=== PATIENT | male | born 1995 | race Caucasian/White ===

== ENCOUNTER 2017-06-08 11:20 | Emergency (ER) | payer BC ==
[2017-06-08 14:00] VITALS: BP 119/55
--- NOTE | 2017-06-08 14:25 | RAD ---
Indication: Left humerus injury. 2 views of left upper arm demonstrates no fracture. No other bone or joint abnormality is noted. IMPRESSION: No fracture of the left humerus is noted.
--- NOTE | 2017-06-09 08:15 | ED ---
Upper Extremity Pain - HPI Summary HPI Summary: Patient presents to the ED with CC of left posterior humeral pain after a tree fell onto the extremity. There is swelling and ecchymosis, but he is able to move about the joint. Denies numbness or tingling. Denies other symptoms. He has not taken anything for pain. Pain is worse with movement and better with rest. Denies previous trauma to the arm. - History of Current Complaint Chief Complaint: EDExtremityUpper Stated Complaint: LEFT ARM PAIN Time Seen by Provider: 06/08/17 11:48 Hx Obtained From: Patient Mechanism Of Injury: Blunt Trauma Onset/Duration: Started Hours Ago Timing: Constant Severity Initially: Moderate Severity Currently: Moderate Pain Location: Arm Character: Aching Aggravating Factor(s): Movement Alleviating Factor(s): Rest, Ice Associated Signs & Symptoms: Positive: Swelling, Bruising Related History: Occupational Injury, Dominant Hand Right - Risk Factors Non-Orthopedic Risk Factor: Negative DVT Risk Factors: Negative Septic Arthritis Risk Factor: Negative Compartment Syndrome Risk Factors: Pain - Allergies/Home Medications Allergies/Adverse Reactions: Allergies Allergy/AdvReac Type Severity Reaction Status Date / Time No Known Allergies Allergy Unverified 06/05/15 22:45 PMH/Surg Hx/FS Hx/Imm Hx Previously Healthy: Yes - Immunization History Hx Pertussis Vaccination: No Immunizations Up to Date: Unable to Obtain/Confirm Infectious Disease History: No Infectious Disease History: Denies: Traveled Outside the [place] in Last 30 Days - Social History Occupation: Employed Full-time Lives: With Family Alcohol Use: Rare Hx Substance Use: No Substance Use Type: Reports: None Hx Tobacco Use: No Smoking Status (MU): Never Smoked Tobacco Review of Systems Constitutional: Negative Negative: Fever, Chills, Fatigue Eyes: Negative Cardiovascular: Negative Respiratory: Negative Genitourinary: Negative Positive: no symptoms reported, see HPI Positive: Arthralgia - left posterior humeral pain Skin: Negative Neurological: Negative Psychological: Normal All Other Systems Reviewed And Are Negative: Yes Physical Exam Triage Information Reviewed: Yes Vital Signs On Initial Exam: Initial Vitals Temp Pulse Resp BP Pulse Ox 97 F 69 17 128/67 99 06/08/17 11:39 06/08/17 11:39 06/08/17 11:39 06/08/17 11:39 06/08/17 11:39 Vital Signs Reviewed: Yes Appearance: Positive: Well-Appearing, Well-Nourished Skin: Positive: Skin Color Reflects Adequate Perfusion Head/Face: Positive: Normal Head/Face Inspection Eyes: Positive: EOMI, Conjunctiva Clear Neck: Positive: Supple, No Lymphadenopathy Respiratory/Lung Sounds: Positive: Clear to Auscultation, Breath Sounds Present Cardiovascular: Positive: Pulses are Symmetrical in both Upper and Lower Extremities Musculoskeletal: Positive: Pain @ - left posterior upper arm pain with ecchymosis and swelling Neurological: Positive: Speech Normal Psychiatric: Positive: Normal Diagnostics - Vital Signs Vital Signs Temp Pulse Resp BP Pulse Ox 06/08/17 13:59 98.5 F 66 18 119/55 95 06/08/17 11:39 97 F 69 17 128/67 99 - Laboratory Lab Statement: Any lab studies that have been ordered have been reviewed, and results considered in the medical decision making process. Course/Dx - Course Course Of Treatment: left posterior upper arm pain with ecchymosis and swelling after the extremity was hit by a tree branch. Denies other symptoms. Humeral xray shows no fracture. Patient is OK for discharge and refuses medication and sling offered. - Diagnoses Differential Diagnosis/HQI/PQRI: Positive: Contusion Provider Diagnoses: Contusion, arm, upper Discharge - Discharge Plan Condition: Stable Disposition: HOME Patient Education Materials: Hematoma (ED) Referrals: Jorgito Herbert, COIN MACHINE SUPERVISOR [Primary Care Provider] - Additional Instructions: Ice Elevation Ibuprofen 600mg three times daily Continue to move at the elbow joint to allow for some circulation. You may begin to use heat and ice intermittently tomorrow. Images - Images Full Body (No Head): 1 - left posterior upper arm pain with ecchymosis and swelling
== END 2017-06-08 13:59 | disposition home or self-care (01) ==
LOC: ED 11:20
DX: S40.022A Contusion of left upper arm, initial encounter (principal); W20.8XXA Other cause of strike by thrown, projected or falling object, initial encounter; Y93.9 Activity, unspecified; Y92.9 Unspecified place or not applicable; Y99.9 Unspecified external cause status
CPT/HCPCS: 99281

== ENCOUNTER 2017-06-15 15:42 | Emergency (ER) | payer BC ==
[2017-06-15 15:51] VITALS: BP 139/60
--- NOTE | 2017-07-09 08:47 | UC ---
FLU HPI - HPI Summary HPI Summary: Patient presents to the with cough, congestion and fever of 99.5 x 2 days. He states his family has been sick with the flu and he was exposed. Denies flu vaccine this year. He has been otherwise healthy. Denies abdominal pain, N.V.C.D. Denies LEO or other complaints. He has never had the flu. Denies other recent illness. Cough is non-productive and rates a 5/10. - History of Current Complaint Chief Complaint: UCRespiratory Stated Complaint: FEVER Time Seen by Provider: 06/15/17 16:05 Hx Obtained From: Patient Onset/Duration: Sudden Onset Severity Currently: Mild Severity Initially: Mild Pain Intensity: 0 Pain Scale Used: 0-10 Numeric Associated Signs & Symptoms: Positive: Fever, T Max - Risk Factors Influenza Risk Factors: Negative - Allergy/Home Medications Allergies/Adverse Reactions: Allergies Allergy/AdvReac Type Severity Reaction Status Date / Time No Known Allergies Allergy Unverified 06/15/17 15:51 PMH/Surg Hx/FS Hx/Imm Hx Previously Healthy: Yes - Surgical History Surgical History: Yes Surgery Procedure, Year, and Place: skin grafts - Family History Known Family History: Positive: Unknown - Social History Occupation: Employed Full-time Lives: With Family Alcohol Use: Weekly Alcohol Amount: 4-5/week Substance Use Type: None Smoking Status (MU): Never Smoked Tobacco - Immunization History Most Recent Influenza Vaccination: unknown Review of Systems Constitutional: Fever, Fatigue Skin: Negative Respiratory: Negative Cardiovascular: Negative Gastrointestinal: Negative Motor: Negative Neurovascular: Negative Neurological: Negative Psychological: Negative Is Patient Immunocompromised?: No All Other Systems Reviewed And Are Negative: Yes Physical Exam Triage Information Reviewed: Yes Appearance: Well-Appearing, Well-Nourished Vital Signs: Initial Vital Signs Temp 98.3 F 06/15/17 15:46 Pulse 89 06/15/17 15:46 Resp 14 06/15/17 15:46 BP 139/60 06/15/17 15:46 Pulse Ox 99 06/15/17 15:46 Vital Signs Reviewed: Yes Eye Exam: Normal Eyes: Positive: Conjunctiva Clear ENT Exam: Normal Neck exam: Normal Neck: Positive: Supple, No Lymphadenopathy Respiratory Exam: Normal Respiratory: Positive: Chest non-tender, Lungs clear Cardiovascular Exam: Normal Cardiovascular: Positive: RRR Musculoskeletal Exam: Normal Musculoskeletal: Positive: Strength Intact Neurological: Positive: Alert Psychological: Positive: Normal Response To Family Skin Exam: Normal Flu Course/Dx - Course Course Of Treatment: Patient is evaluated in the UC for generalized fatigue, myalgias, slight fever and headache which has improved 2 days. He notes 2 sick contacts including his child and who both have recently had positive flu. Flu swab obtained and negative. He is discharged with return precautions and symptomatic care. - Differential Dx/Diagnosis Provider Diagnoses: Viral Illness Discharge - Discharge Plan Condition: Stable Disposition: HOME Prescriptions: Oseltamivir CAP* [Tamiflu CAP*] 75 mg PO DAILY #7 cap Patient Education Materials: Influenza (ED) Referrals: Jorgito Herbert CAREER CONSULTANT [Primary Care Provider] -
== END 2017-06-15 17:15 | disposition home or self-care (01) ==
LOC: UCEAST 15:42
DX: B34.9 Viral infection, unspecified (principal); R50.9 Fever, unspecified; R53.83 Other fatigue
CPT/HCPCS: 87502; 99212; G0463

== ENCOUNTER 2019-06-25 12:44 | Inpatient (IN) | payer SELFPAY ==
--- NOTE | 2019-06-25 13:19 | ED ---
Psychiatric Complaint - HPI Summary HPI Summary: The patient is a 23 year old male [place] [facility] with a chief complaint of argument with today with statements of self-induced harm. He reports that he had an argument with his , who became concerned as the argument escalated because her father had committed suicide. He denies any suicidal ideation now, or any thoughts of homicide. No previous attempt of suicide. He has only been here once for mental health at age 14 following a breakup. No psychiatric history or need for medication. Current smoker, weekly alcohol use (one glass of wine yesterday but none today), cocaine use. Medications reviewed. Allergies noted. - History Of Current Complaint Chief Complaint: EDMentalHealth Time Seen by Provider: 06/25/19 12:57 Hx Obtained From: Patient Onset/Duration: Sudden Onset, Resolved Severity Initially: Moderate Severity Currently: None Character: Frustrated Aggravating Factor(s): Recent Stress Alleviating Factor(s): Nothing Associated Signs And Symptoms: Positive: Negative Related History: Negative For: Prior Psychiatric Issues Has Suicidal: Denies: Thoughts Has Homicidal: Denies: Thoughts Recent Stressor(s): argument with - Allergies/Home Medications Allergies/Adverse Reactions: Allergies Allergy/AdvReac Type Severity Reaction Status Date / Time No Known Allergies Allergy Verified 08/20/17 10:49 Home Medications: Home Medications NK [No Home Medications Reported] 06/25/19 [History Confirmed 06/25/19] PMH/Surg Hx/FS Hx/Imm Hx Endocrine/Hematology History: Denies: Hx Diabetes Cardiovascular History: Denies: Hx Hypercholesterolemia, Hx Hypertension, Hx Pacemaker/ICD History: Denies: Hx Renal Disease Sensory History: Denies: Hx Hearing Aid Psychiatric History: Denies: Hx Panic Disorder - Surgical History Surgical History: Yes Surgery Procedure, Year, and Place: SKIN GRAFTS;. BULLET REMOVED FROM LEFT LEG .22 KELLI (ER NOTES - SINGLE FRAGMENT ON XRAY - [place] [facility] [place] Infectious Disease History: No Infectious Disease History: Denies: Traveled Outside the [place] in Last 30 Days - Family History Known Family History: Positive: Diabetes - Social History Alcohol Use: Weekly Alcohol Amount: 4-5/week Hx Substance Use: Yes Substance Use Type: Reports: Cocaine Hx Tobacco Use: No Smoking Status (MU): Never Smoked Tobacco Review of Systems Negative: Fever Positive: Other - suicidal statements without ideations now; Negative: homicidal ideation All Other Systems Reviewed And Are Negative: Yes Physical Exam - Summary Physical Exam Summary: VITAL SIGNS: Reviewed. GENERAL: Patient is a well-developed and nourished male who is lying comfortable in the stretcher. Patient is not in any acute respiratory distress. HEAD AND FACE: No signs of trauma. No ecchymosis, hematomas or skull depressions. No sinus tenderness.. EYES: PERRLA, EOMI x 2, No injected conjunctiva, no nystagmus. EARS: Hearing grossly intact. Ear canals and tympanic membranes are within normal limits. MOUTH: Oropharynx within normal limits. NECK: Supple, trachea is midline, no adenopathy, no JVD, no carotid bruit, no c- spine tenderness, neck with full ROM. CHEST: Symmetric, no tenderness at palpation. LUNGS: Clear to auscultation bilaterally. No wheezing or crackles. CVS: Regular rate and rhythm, S1 and S2 present, no murmurs or gallops appreciated. ABDOMEN: Soft, non-tender. No signs of distention. No rebound, no guarding, and no masses palpated. Bowel sounds are normal. EXTREMITIES: FROM in all major joints, no edema, no cyanosis or clubbing. NEURO: Alert and oriented x 3. No acute neurological deficits. Speech is normal and follows commands. SKIN: Dry and warm. PSYCH: Depressed, quiet, and denies any suicidal thoughts or plan. No homicidal thoughts or plan. No signs of psychosis or pressure speech. No tangential speech. Triage Information Reviewed: Yes Vital Signs On Initial Exam: Initial Vitals Temp Pulse Resp BP Pulse Ox 99.5 F 76 18 142/81 99 06/25/19 12:49 06/25/19 12:49 06/25/19 12:49 06/25/19 12:49 06/25/19 12:49 Vital Signs Reviewed: Yes Procedures - Sedation Patient Received Moderate/Deep Sedation with Procedure: No Diagnostics - Vital Signs Vital Signs Temp Pulse Resp BP Pulse Ox 06/25/19 12:49 99.5 F 76 18 142/81 99 - Laboratory Result Diagrams: 06/25/19 13:33 06/25/19 13:33 Lab Statement: Any lab studies that have been ordered have been reviewed, and results considered in the medical decision making process. Re-Evaluation - Re-Evaluation First Eval Re-Evaluation Time: 13:30 Comment: Patient is medically clear for mental health evaluation. Course/Dx - Course Assessment/Plan: The patient is a 23 year old male [place] [facility] [place] with a chief complaint of argument with today with statements of self-induced harm. He reports that he had an argument with his , who became concerned as the argument escalated because her father had committed suicide. He denies any suicidal ideation, or any thoughts of homicide. No previous attempt of suicide. He has only been here once for mental health at age 14 following a breakup. No psychiatric history or need for medication. Current smoker, weekly alcohol use (one glass of wine yesterday but none today) , no substance use. Medications reviewed. Allergies noted. Blood work w/o a significant abnormality. Toxicology report is positive for cocaine. He is medically cleared. He is awaiting a MHE. Patient is hemodynamically stable and A +O x 3. Mental health evaluators and Dr. Tuttle from psychiatry have reviewed the patient's case and have determined that he will be admitted to the unit. - Differential Dx/Clinical Impression Differential Diagnosis/HQI/PQRI: Positive: Anxiety, Depression, Suicidal Ideation Provider Diagnosis: Depression, Mood disorder - Physician Notifications Discussed Care Of Patient With: Dominic Tuttle - psychiatry Time Discussed With Above Provider: 17:00 Instructed by Provider To: Other - Dr. Tuttle has evaluated the pateint and has determined that he is appropriate for admission, diagnosis of mood disorder. Discharge ED - Sign-Out/Discharge Documenting (check all that apply): Patient Departure - Patient admitted to behavioral unit by Dr. Tuttle. - Discharge Plan Condition: Stable [place] [place] Billing Disposition and Condition Condition: STABLE Disposition: Psychiatric Facility [facility] [place] Attestation Statements Document Initiated by Maryanibe: Yes Documenting Scribe: Tammie Sands Provider For Whom Gamaliel is Documenting (Include Credential): Dr. Justus Mtz MD Scribe Attestation: Tammie Tsai scribed for Dr. Justus Mtz MD on 06/25/19 at 2154. Scribe Documentation Reviewed: Yes Provider Attestation: The documentation as recorded by the Tammie sheppard accurately reflects the service I personally performed and the decisions made by me, Dr. Justus Mtz MD Status of Scribe Document: Viewed
[2019-06-25 13:49] LABS: ABS Basophils 0.1 10^3/ul (0-0.2); ABS Lymphocytes 1.5 10^3/ul (1.0-4.8); ABS Monocytes 0.5 10^3/ul (0-0.8); ABS Neutrophils 5.9 10^3/ul (1.5-7.7); Eosinophil % 0.6 %; Hematocrit 46 % (42-52); Hemoglobin 15.6 g/dL (14.0-18.0); Lymphocyte % 18.9 %; Mean Corpuscular HGB Conc 34 g/dL (31-36); Mean Corpuscular Hemoglobin 30 pg (27-31); Mean Corpuscular Volume 88 fL (80-94); Mean Platelet Volume 7.2 fL (7.4-10.4); Platelet Count 208 10^3/uL (150-450); Red Blood Count 5.23 10^6 /uL (4.18-5.48); Red Cell Distribution Width 13 % (10-15); White Blood Count 7.9 10^3/uL (3.5-10.8)
[2019-06-25 14:01] LABS: ALT 16 U/L (7-52); AST 15 U/L (13-39); Albumin/Globulin Ratio 2.2 (1-3); Alkaline Phosphatase 52 U/L (34-104); Anion Gap 6 mmol/L (2-11); BUN/Creatinine Ratio 15.2 (8-20); Blood Urea Nitrogen 17 mg/dL (6-24); CO2 Carbon Dioxide 29 mmol/L (22-32); Calcium 9.8 mg/dL (8.6-10.3); Chloride 104 mmol/L (101-111); EGFR African American 97.5 (>60); EGFR Non-African American 80.5 (>60); Globulin 2.3 g/dL (2-4); Glucose 105 mg/dL (70-100); Sodium 139 mmol/L (135-145); Total Protein 7.3 g/dL (6.4-8.9)
[2019-06-25 14:20] LABS: Acetaminophen < 15 mcg/mL; Alcohol < 10 mg/dL (<10); Salicylate < 2.50 mg/dL (<30)
[2019-06-25 14:27] LABS: Urine Appearance Clear; Urine Bilirubin Negative (Negative); Urine Blood Negative (Negative); Urine Color Yellow; Urine Glucose Negative (Negative); Urine Ketones Negative (Negative); Urine Nitrite Negative (Negative); Urine Protein Negative (Negative); Urine Specific Gravity 1.015 (1.010-1.030); Urine Urobilinogen Negative (Negative)
[2019-06-25 14:34] LABS: TSH (Thyroid Stimulating Horm) 3.17 mcIU/mL (0.34-5.60)
[2019-06-25 14:46] LABS: Urine Benzodiazepine Screen None Detected (None Detect); Urine Opiates Screen None Detected (None Detect)
[2019-06-25] MEDS ORDERED: Al Hydrox/Mg Hydrox/Simet LIQ* 30 ML UDC PO PRN (19:45)
[2019-06-25] MEDS ORDERED: Acetaminophen TAB* 325 MG PO PRN (19:45)
[2019-06-25] MEDS ORDERED: Haloperidol TAB* 5 MG PO PRN (19:46)
[2019-06-25] MEDS ORDERED: LORazepam TAB(*) 1 MG PO PRN (19:47)
[2019-06-26] MEDS: Vitamin THERAPEUTIC TAB PO SCH (09:20)
--- NOTE | 2019-06-26 10:59 | HP ---
H&P (Free Text) History and Physical: Justification for admission: Immediate Safety. CC " I did cocaine" The patient was brought to [facility] by police after threatening to end his life with his gun. He denied having homicidal target or saying that he wanted to kill a friend. He is requesting discharge today and said I have to go to work. He reported driving 16 hours back home from a hunting trip and was tired and said things he did not mean. He reported that his firearms were taken to his sister in laws home and his mother confirmed this. Denied current access to firearms or stockpiles of medications. He reported using cocaine and staying up after getting no sleep yesterday. He got into a argument with his because she did not tell him that he had a relationship in the distant past with someone he knew before they started dating. He reported normal appetite. He reported using cocaine to get back at his for not telling him about a person she dated before him and used cocaine because he knew it would make her upset. The patient denied suicidal and or homicidal ideation intent or plan. The patient denied auditory and/ or visual hallucinations. MDD Reported feelings of depression and lack of concentration. He reported being irritable and reported making a suicidal statement out of anger. Anxiety Denied having symptoms of anxiety such as having times where heart feels that it is beating out of chest , sweaty palms, or shallow breathing. Denied having uncomfortable or intrusive thoughts. Denied feeling restless, high strung, or worrying too much most of the time. Bipolar Denied symptoms of km such as having many ideas at once. Denied increased talkativeness where no one can interrupt. Denied feeling irritable most of the time while having an persistent abundance of energy most of the day without the use of energy drinks, stimulants, or recreational drug use. Denied an increase in intensity in goal directed activities. Denied having the decreased need to sleep for days , having prolonged elevated mood , or feeling on top of the world. Denied impulsive risky sexual encounters. Denied spending money recklessly , going on spending sprees wiping out savings. Denied impulsively traveling out of town or country, having super anderson, and unrealistic wealth or fame. Psychosis Does not endorse hearing things that other people do not hear or seeing things other people do not see. Denied feeling that TV is making references. Denied feeling that people are spying , following , or reading their thoughts. Phobias: Patient denied having excessive fear of a particular thing or situation. Eating disorders: Patient denied having excessive eating habits or feelings of guilt after eating. Denied repeated episodes of self induced vomiting after eating. PTSD Denied flashbacks, nightmares and avoidance of a prior traumatic event. PAST PSYCHIATRIC HISTORY: Prior Diagnosis : ADHD History of past Psychiatric Hospitalizations: No prior psychiatric admission. History of past suicide/homicide attempts : Denied past suicide attempts or self injurious behaviors. Made suicidal statement at age 15 following a break up with his girlfriend. Fights in high school. Outpatient follow-up: Dr. Mayberry Psychologist Medications: Past trials of medications include risperdal, prozac, ritalin strattera Guardianship: None. FAMILY HISTORY: - Suicide: Uncle and grandfather from suicide - Mental illness: Father has depression and currently takes wellbutrin with favorable response - Substance abuse: Uncle abuses alcohol SUBSTANCE ABUSE HISTORY: - EtOH: Uses occasionally. No associated legal issues, blackouts, seizures, DTs or past hospitalizations due to alcohol. - Tobacco: Denied - Cannabis: Uses on weekly basis. - Heroin: Denied - Cocaine: Last used yesterday. First date of use 4 months ago. - Substance abuse treatment: Denied past substance abuse treatment SOCIAL HISTORY: - Denied a history of childhood physical and or sexual abuse Born in [facility] and raised by both parents. - Education: No history of special education. - Living situation: Currently lives in [facility] - Employment history: Works construction - Relationship: and has 2 children lives with in [place] - Legal history: Denied - service history: Denied PAST MEDICAL HISTORY: Denied heart disease, diabetes, cancer and/ or other medical conditions. - Allergies: Denied drug or other allergies. Physical Exam: Please see ED note Mental Status Exam on Admission APPEARANCE : 23 year old male who appears stated age. Patient is not malodourous, and appears to have fair hygiene and grooming. BEHAVIOR: Cooperative , calm EYE CONTACT: Fair PSYCHOMOTOR ACTIVITY: No psychomotor agitation or retardation. MOVEMENTS: No abnormal movements observed. SPEECH : Normal rate, rhythm, volume and tone. MOOD : " Fine" AFFECT : Type is irritable Range is restricted Mood Congruent THOUGHT PROCESS: Formulated and organized in a logical, linear goal directed manner. No flight of ideas, neologism (made up words) , perseveration , tangential , loose associations , or circumstantiality. THOUGHT CONTENT: no delusions, obsessions, phobias or preoccupations. PERCEPTION: No current auditory or visual hallucinations. Doesnt appear to be responding to internal cues. No evidence of depersonalization , de-realization, or illusions SUICIDALITY suicidal ideation with plan to shoot himself HOMICIDALITY Denied homicidal ideation, intent or plan. Insight/judgment: Poor insight and judgment ORIENTATION: Oriented to self, location, and time. Diagnosis on Admission: Unspecified depressive disorder, cocaine use disorder. Assessment: 23year old male with history of cocaine use and depression came to the hospital brought by police following making suicidal statements and was admitted to the [facility] at [facility]. Plan #Admit to BSU, Q15 minute observation. Start regular diet. Encourage participation in activities on the milieu. #Patient evaluated in ED and was determined by the emergency room Physician to be medically fit for admission to the BSU. # Justification for Admission: For immediate safety per outlined in the [place] Mental Hygiene Code. # The patient requires psychiatric inpatient admission at this time to assure safety, receive treatment and work toward stabilization. # Labs ordered: CBC, CMP, UDS, TSH, HBA1c, TSH, Toxicology screen, Urine analysis, and lipid profile. # Obtain collateral information obtained from mother and confirmed removal of firearms # Collaboration with Social Work # Family meeting took place and set up follow up appointments for next week. # requesting discharge and was informed that discharge doesnt usually happen on weekends. # Start Wellbutrin 150mg daily. No history of seizures. Substance Abuse resources offered and declined #Goals before discharge include: To eliminate/ reduce suicidal ideation Tentative Discharge: Saturday The risks, benefits, and alternative treatment options were discussed as well as the risks of refusing treatment. After this discussion and an acknowledgement of this understanding was made. A risk/ benefit assessment of treatment was considered and discussed with the patient. When comparing the risks of treatment with the dangers of not receiving treatment, the benefits of treatment outweigh the treatment risks at this time. Risks of allergy, suicidal ideation, behavioral changes, dystonia, rashes, electrolyte imbalances, movement disorders, cardiac conduction changes, serotonin syndrome, metabolic risks were among some of the risks discussed. Sodium 139 mmol/L (135-145) 06/25/19 13:33 Potassium 4.0 mmol/L (3.5-5.0) 06/25/19 13:33 BUN 17 mg/dL (6-24) 06/25/19 13:33 Creatinine 1.12 mg/dL (0.67-1.17) 06/25/19 13:33 Hemoglobin A1c 4.9 % (4.0-5.6) 06/26/19 07:37 Calcium 9.8 mg/dL (8.6-10.3) 06/25/19 13:33 AST 15 U/L (13-39) 06/25/19 13:33 ALT 16 U/L (7-52) 06/25/19 13:33 Triglycerides 96 mg/dL 06/26/19 07:37 Cholesterol 161 mg/dL 06/26/19 07:37 LDL Cholesterol 82 mg/dL 06/26/19 07:37
[2019-06-26] MEDS: BuPROPion XL* 150 MG TAB.XL PO SCH (15:40)
[2019-06-26] MEDS: hydrOXYzine HCL TAB* 50 MG PO PRN (20:41)
[2019-06-27] MEDS: Vitamin THERAPEUTIC TAB PO SCH (09:00)
[2019-06-27] MEDS: BuPROPion XL* 150 MG TAB.XL PO SCH (09:00)
[2019-06-27] MEDS: hydrOXYzine HCL TAB* 50 MG PO PRN (21:26)
[2019-06-28] MEDS: Vitamin THERAPEUTIC TAB PO SCH (08:38)
[2019-06-28] MEDS: BuPROPion XL* 150 MG TAB.XL PO SCH (08:38)
--- NOTE | 2019-06-28 18:30 | PN ---
Subjective - Subjective Date of Service: 06/28/19 Service Type: 92808 Hosp care 15 min low complexity Subjective: Reports doing well here. Reports feeling the admission has helped him "hit the reset button", and helped him to realize that he cannot use or moderate use of cocaine. Reports he is glad he learned what he could about himself by being here this weekend. Reports his is highly sensitive because she lost her father to suicide, leading to taking what he said about suicide as literal rather than figurative. Objective - General Observations Appearance: Neat, Well Groomed Appears Stated Age: Yes Stature: WNL Posture: WNL Eye Contact: Average Behavior/Activity: WNL - Interaction Observations Attitude Towards Examiner: Cooperative Stated Mood: Euthymic Affect: Full Speech Pattern/Tone: Clear, Appropriate, Normal Volume Thought Process: Coherent, Goal Directed Perception: WNL Thought Content: WNL Hallucination Type: None Delusion Type: None - Cognitive Function Orientation: A&O x 4 Level of Consciousness: Awake, Alert, Appropriate Cognition: WNL Estimated Intelligence: Normal Insight: WNL Judgment Within Normal Limits: Yes - Medication Compliance Cooperative with Inpatient Medication Regimen: Yes - Group Participation Participates in Group Activities: Yes Assessment - Assessment Merits Inpatient Hospitalization: For Stabilization, To Initiate Treatment, For Ongoing Evaluation, Consolidate Improvements, For Discharge Planning, Pending Safe DC Plan Inpatient DSM-V Dx: F32.9 Clinical Impression: Mr. Romero was admitted for safety, assessment and treatment after having been brought to the hospital ED by police called by his because she heard him say he would shoot himself. He reports he did not have true intent to kill himself, but made provocative statements during a fight over his use of cocaine. Patient reports feeling safe here now, with no intent or plan to harm himself and no thoughts about suicide. He reports feeling beneficial effects on mood and no side effects from bupropion, started here. He has no physical or psychiatric complaints. Plan - Plan Treatment Plan: Name: JOSUE ROMERO Birthdate: 1995 [id number] Continue current medications and other elements of weekday team treatment plan. Continued Medication Management: Start Medication Medications: Current Medications Acetaminophen (Tylenol Tab*) 650 mg PO Q4H PRN PRN Reason: PAIN or TEMP > 101 F Al Hydrox/Mg Hydrox/Simethicone (Maalox Plus*) 30 ml PO Q4H PRN PRN Reason: INDIGESTION Bupropion HCl (Wellbutrin Xl *) 150 mg PO DAILY [facility] Last Admin: 06/28/19 08:38 Dose: 150 mg Haloperidol (Haldol Tab*) 5 mg PO Q4H PRN PRN Reason: AGITATION Hydroxyzine HCl (Atarax Tab*) 50 mg PO BEDTIME PRN PRN Reason: SLEEP Last Admin: 06/27/19 21:26 Dose: 50 mg Lorazepam (Ativan Tab(*)) 2 mg PO Q4H PRN PRN Reason: AGITATION Multivitamins (Theragran Tab*) 1 tab PO DAILY [facility] Last Admin: 06/28/19 08:38 Dose: 1 tab - Discharge Plan Discharge Plan: Outpatient Follow Up Outpatient Program: Harsha Jay, therapist
[2019-06-28] MEDS: hydrOXYzine HCL TAB* 50 MG PO PRN (20:51)
[2019-06-29] MEDS: Vitamin THERAPEUTIC TAB PO SCH (08:36)
[2019-06-29] MEDS: BuPROPion XL* 150 MG TAB.XL PO SCH (08:36)
--- NOTE | 2019-06-29 08:39 | DS ---
Subjective - Subjective Service Types: 02162 [facility] Day [facility]mt complex over 30 min Discharge Date: 06/29/19 Subjective: CC: " I am better" Patient looks forward to going to work and seeing his family. He reported going to AA group and got a lot out of it. He reported having favorable response to medication. The patient was seen and evaluated before discharge today. The patient reported having adequate appetite and sleep. The patient reports attending and participating in day groups. Per nursing no behavioral issues or overnight events reported. Patient reported tolerating medications without side effects. He wants to live for his and children. Justification for admission: Immediate Safety. CC " I did cocaine" The patient was brought to [facility] by police after threatening to end his life with his gun. He denied having homicidal target or saying that he wanted to kill a friend. He is requesting discharge today and said I have to go to work. He reported driving 16 hours back home from a hunting trip and was tired and said things he did not mean. He reported that his firearms were taken to his sister in laws home and his mother confirmed this. Denied current access to firearms or stockpiles of medications. He reported using cocaine and staying up after getting no sleep yesterday. He got into a argument with his because she did not tell him that he had a relationship in the distant past with someone he knew before they started dating. He reported normal appetite. He reported using cocaine to get back at his for not telling him about a person she dated before him and used cocaine because he knew it would make her upset. The patient denied suicidal and or homicidal ideation intent or plan. The patient denied auditory and/ or visual hallucinations. MDD Reported feelings of depression and lack of concentration. He reported being irritable and reported making a suicidal statement out of anger. Anxiety Denied having symptoms of anxiety such as having times where heart feels that it is beating out of chest , sweaty palms, or shallow breathing. Denied having uncomfortable or intrusive thoughts. Denied feeling restless, high strung, or worrying too much most of the time. Bipolar Denied symptoms of km such as having many ideas at once. Denied increased talkativeness where no one can interrupt. Denied feeling irritable most of the time while having an persistent abundance of energy most of the day without the use of energy drinks, stimulants, or recreational drug use. Denied an increase in intensity in goal directed activities. Denied having the decreased need to sleep for days , having prolonged elevated mood , or feeling on top of the world. Denied impulsive risky sexual encounters. Denied spending money recklessly , going on spending sprees wiping out savings. Denied impulsively traveling out of town or country, having super anderson, and unrealistic wealth or fame. Psychosis Does not endorse hearing things that other people do not hear or seeing things other people do not see. Denied feeling that TV is making references. Denied feeling that people are spying , following , or reading their thoughts. Phobias: Patient denied having excessive fear of a particular thing or situation. Eating disorders: Patient denied having excessive eating habits or feelings of guilt after eating. Denied repeated episodes of self induced vomiting after eating. PTSD Denied flashbacks, nightmares and avoidance of a prior traumatic event. PAST PSYCHIATRIC HISTORY: Prior Diagnosis : ADHD History of past Psychiatric Hospitalizations: No prior psychiatric admission. History of past suicide/homicide attempts : Denied past suicide attempts or self injurious behaviors. Made suicidal statement at age 15 following a break up with his girlfriend. Fights in high school. Outpatient follow-up: Dr. Mayberry Psychologist Medications: Past trials of medications include risperdal, prozac, ritalin strattera Guardianship: None. FAMILY HISTORY: - Suicide: Uncle and grandfather from suicide - Mental illness: Father has depression and currently takes wellbutrin with favorable response - Substance abuse: Uncle abuses alcohol SUBSTANCE ABUSE HISTORY: - EtOH: Uses occasionally. No associated legal issues, blackouts, seizures, DTs or past hospitalizations due to alcohol. - Tobacco: Denied - Cannabis: Uses on weekly basis. - Heroin: Denied - Cocaine: Last used yesterday. First date of use 4 months ago. - Substance abuse treatment: Denied past substance abuse treatment SOCIAL HISTORY: - Denied a history of childhood physical and or sexual abuse Born in [facility] and raised by both parents. - Education: No history of special education. - Living situation: Currently lives in [facility] - Employment history: Works construction - Relationship: and has 2 children lives with in [place] - Legal history: Denied - service history: Denied PAST MEDICAL HISTORY: Denied heart disease, diabetes, cancer and/ or other medical conditions. - Allergies: Denied drug or other allergies. Physical Exam: Please see ED note Mental Status Exam on Admission APPEARANCE : 23 year old male who appears stated age. Patient is not malodourous, and appears to have fair hygiene and grooming. BEHAVIOR: Cooperative , calm EYE CONTACT: Fair PSYCHOMOTOR ACTIVITY: No psychomotor agitation or retardation. MOVEMENTS: No abnormal movements observed. SPEECH : Normal rate, rhythm, volume and tone. MOOD : " Fine" AFFECT : Type is irritable Range is restricted Mood Congruent THOUGHT PROCESS: Formulated and organized in a logical, linear goal directed manner. No flight of ideas, neologism (made up words) , perseveration , tangential , loose associations , or circumstantiality. THOUGHT CONTENT: no delusions, obsessions, phobias or preoccupations. PERCEPTION: No current auditory or visual hallucinations. Doesnt appear to be responding to internal cues. No evidence of depersonalization , de-realization, or illusions SUICIDALITY suicidal ideation with plan to shoot himself HOMICIDALITY Denied homicidal ideation, intent or plan. Insight/judgment: Poor insight and judgment ORIENTATION: Oriented to self, location, and time. Diagnosis on Admission: Unspecified depressive disorder, cocaine use disorder. Diagnosis on Discharge: Major depressive disorder, in partial remission, Cocaine use disorder. Condition at the time of discharge: At the time of discharge patient showed improvement of sleep and appetite. The patient was not a danger to self or others. The patient denied suicidal ideation, intent or plan. The patient denied homicidal targets, ideation, intent or plan. This patient participated in psychosocial rehabilitation and gained some insight into problems. The patient gained insight into mental illness, triggers, and treatment. The patient took medication as prescribed. The patient denied side effects of medication and objective signs of side effects were not evident. Therapy Resources were offered to the patient. Patient was given a supply of prescriptions at the time of discharge. The patient plans to attend follow up care with the follow up arrangements that were discussed and put in place. Patient was asked to keep appointments as scheduled, take medication as prescribed, have routine follow up care with their primary care physician and refrain from any use of alcohol or drugs. Objective - General Observations Appearance: Neat Appears Stated Age: Yes Stature: WNL Posture: WNL Eye Contact: Average Behavior/Activity: WNL - Interaction Observations Attitude Towards Examiner: Cooperative Stated Mood: Euthymic Affect: Full Speech Pattern/Tone: Clear Thought Process: Coherent Perception: WNL Thought Content: WNL Hallucination Type: None Delusion Type: None - Cognitive Function Orientation: A&O x 4 Level of Consciousness: Awake Cognition: WNL - Medication Compliance Cooperative with Inpatient Medication Regimen: Yes - Group Participation Participates in Group Activities: Yes Treatment Course & Assessment Clinical Course & Impression: Hospital course part A: 23year old male with history of cocaine use and depression came to the hospital brought by police following making suicidal statements and was admitted to the BSU at [facility]. Hospital course part B: Labs ordered included CBC, CMP, UDS, TSH, HBA1c, TSH, Toxicology screen, Urine analysis, and lipid profile. Labs were reviewed and vital signs were monitored during the course of admission. The patient was admitted to the adult behavioral unit and placed on 15 minute check for safety. At a later time the patient was on Q30 minute observation and staff pass privileges. With those limits being extended, patient was safe on all checks and there were no occurrence of behavioral incidents. The patient did well on the unit and went to groups. Interacted with peers had adequate sleep and regular appetite. Tolerated medication changes without side effects. Group therapy and services were offered. The risks, benefits, and alternative treatment options were discussed as well as of the risks of refusing treatment. Treatment associated risks discussed. After this discussion the patient made an acknowledgement of this understanding. Follow up care appointments were put in place. Monitoring for metabolic changes was reviewed and it was emphasized to the patient to be continued to be monitored upon discharge. The patient was informed not to abruptly stop or start new medications before consulting with a medical professional. Improvements in patient from the time of admission include: Improved affect, sleep and decrease in anxiety. The patient expressed readiness for discharge home. The patient presents with a broader range of affect, and the absence of depressed mood, delusions, perceptual disturbance. The patient denied suicidal and or homicidal ideation intent or plan. Overall, the patient responded well to inpatient treatment as evidenced by their report of strengthening of coping mechanisms, reduced distress, and more positive outlook on circumstances. Of note there was an improvement of recognizing how emotional state can effect mood and behavior. Safety precautions were put in place which included involving the patient and their family to closely monitor for changes in mental state. In addition, implementing follow up care, screening for the need to remove/securing firearms , weapons and stockpile of medications. Patient/ family instructed to immediately call 911 should any safety concerns arise. The patient was advised of the 24 hour / 7 days a week availability of the emergency room and to call 911 in the event of an emergency such as being suicidal and/ or homicidal. The patient was informed of the contact information for [facility], Suicide Prevention and Crisis Services, National Suicide Prevention Lifeline, [facility], Alcoholics Anonymous, and [facility]. Medications started included wellbutrin 150mg daily for depression and hydroxyzine 50mg qhs for sleep. Patient denied seizure disorder and or eating disorder and was advised not to combine medications with alcohol. Patient was informed of and offered substance abuse cessation resources and was provided with NA support group information. He declined outpatient and inpatient substance abuse. Patient plan to stop using cocaine and had a helpful experience from the AA group during his hospitalization. Family meeting took place before discharge. The family confirmed that the patient is at their baseline. At this time both the patient and family are eager for discharge and are in agreement with the discharge plan and can safely receive care in the less restrictive outpatient setting. They were advised on how the days following discharge can be a vulnerable period and to look out for warning signs associated with decompensation and progression of mental illness. They were notified of the resources available in the event these situations arise and confirmed that the patient no longer has access to firearms or stockpiles of medications. Patient was not assaultive or a behavioral problem during the course of admission. The patient showed good hygiene and was able to carry out activities of daily living. Patient gained insight into how cocaine effects his mood and behavior. Patient will be discharged to live at home. Follow up appointment at PCP and Dr. Jay. Patient informed of follow up appointment times. See more details for follow up care in the discharge plan. Risk factors were mitigated by establishing the patients baseline with close contacts and arranging a family meeting. Implemented precautionary safety measures by confirming no stockpiles of medications and no access to firearms, provided mental health treatment, offered substance abuse resources and treatment, substance abuse therapy groups, stabilization of depressive features , arrangement of outpatient continuation of care, as well as provided a supportive care environment and therapy resources during the course of hospitalization. Safety plan was reviewed with the patient and treatment team and the patient verbalized steps to ensure their safety in the event they feel unsafe and not doing well. Relationship stressors were resolved before discharge. Risk factors: Male, , cocaine use disorder, depressive disorder. Family history of suicide. Protective factors: Currently no suicidal ideation, intent or plan. No prior history of suicide attempts. , has children. Has social/ family support system. No history of service. Currently no feelings of hopelessness, not in an occupation of social isolation, doesnt have multiple medical conditions, no longer has access to firearms. Doesnt have command hallucinations and or psychotic features at this time. No current alcohol abuse. Not an anniversary of a loss of a loved one. No changes in relationship status, housing, job, or school. Currently future orientated. Patient engaged in treatment and compliant with medication. No barriers to seek mental health treatment. Sodium 139 mmol/L (135-145) 06/25/19 13:33 Potassium 4.0 mmol/L (3.5-5.0) 06/25/19 13:33 BUN 17 mg/dL (6-24) 06/25/19 13:33 Creatinine 1.12 mg/dL (0.67-1.17) 06/25/19 13:33 Hemoglobin A1c 4.9 % (4.0-5.6) 06/26/19 07:37 Calcium 9.8 mg/dL (8.6-10.3) 06/25/19 13:33 AST 15 U/L (13-39) 06/25/19 13:33 ALT 16 U/L (7-52) 06/25/19 13:33 Triglycerides 96 mg/dL 06/26/19 07:37 Cholesterol 161 mg/dL 06/26/19 07:37 LDL Cholesterol 82 mg/dL 06/26/19 07:37 Merits Inpatient Hospitalization: No Clear for Discharge: Adequate Clinical Respons Inpatient DSM-V Dx: F32.9 Discharge Planning - Discharge Planning Discharge Plan: Outpatient Follow Up Outpatient Program: Private Clinician(s) Recommendations for Continuing Care: Medication Management, Primary Care Followup Medications: Current Medications Acetaminophen (Tylenol Tab*) 650 mg PO Q4H PRN PRN Reason: PAIN or TEMP > 101 F Al Hydrox/Mg Hydrox/Simethicone (Maalox Plus*) 30 ml PO Q4H PRN PRN Reason: INDIGESTION Bupropion HCl (Wellbutrin Xl *) 150 mg PO DAILY [facility] Last Admin: 06/29/19 08:36 Dose: 150 mg Haloperidol (Haldol Tab*) 5 mg PO Q4H PRN PRN Reason: AGITATION Hydroxyzine HCl (Atarax Tab*) 50 mg PO BEDTIME PRN PRN Reason: SLEEP Last Admin: 06/28/19 20:51 Dose: 50 mg Lorazepam (Ativan Tab(*)) 2 mg PO Q4H PRN PRN Reason: AGITATION Multivitamins (Theragran Tab*) 1 tab PO DAILY [facility] Last Admin: 06/29/19 08:36 Dose: 1 tab Discharge Planning: Prescriptions provided for discharge [x] Yes [] No Follow up care details as per social work arrangements. Patient response to discharge plan: [x] eager for discharge [] agreeable with discharge plan [] ambivalent about discharge [] disagrees with discharge today
[2019-06-29 09:49] VITALS: BP 125/60
== END 2019-06-29 10:15 | disposition home or self-care (01) | DRG 881 ==
LOC: ED 12:44 → BSU 20:24
PROVIDERS: ADMIT Psychiatry & Neurology Psychiatry; ATTEND Psychiatry & Neurology Psychiatry
DX: F32.9 Major depressive disorder, single episode, unspecified (principal); R45.851 Suicidal ideations; F14.90 Cocaine use, unspecified, uncomplicated; F90.9 Attention-deficit hyperactivity disorder, unspecified type; Z81.8 Family history of other mental and behavioral disorders; Z81.1 Family history of alcohol abuse and dependence
CPT/HCPCS: 36415; 80053; 80061; 80307; 80320; 80329; 81003; 83036; 84443; 85025; 99222; 99231; 99238; 99284; A9270-GY; G0480

== ENCOUNTER 2019-08-11 16:36 | Emergency (ER) | payer OTHER ==
[2019-08-11 18:51] VITALS: BP 125/71
[2019-08-11 19:15] LABS: Influenza B Molecular POSITIVE (Negative)
--- NOTE | 2019-08-11 19:15 | UC ---
FLU HPI - HPI Summary HPI Summary: 4 DAYS OF COUGH, CONGESTION, SORE THROAT, HEADACHE, BODY ACHES AND SUBJECTIVE FEVER/CHILLS. NO FLU SHOT THIS SEASON. - History of Current Complaint Chief Complaint: UCGeneralIllness Stated Complaint: URI Time Seen by Provider: 08/11/19 18:56 Hx Obtained From: Patient Onset/Duration: Gradual Onset, Lasting Days, Still Present Severity Currently: Moderate Severity Initially: Moderate Pain Intensity: 0 Pain Scale Used: 0-10 Numeric Associated Signs & Symptoms: Positive: Fever, Myalgia, Cough, Sore Throat, Nasal Congestion, Headache - Allergy/Home Medications Allergies/Adverse Reactions: Allergies Allergy/AdvReac Type Severity Reaction Status Date / Time No Known Allergies Allergy Verified 06/25/19 22:55 Home Medications: Home Medications Bupropion XL* [Wellbutrin XL *] 150 mg PO DAILY #30 tab 06/29/19 [Rx Confirmed 08/11/19] hydrOXYzine HCL TAB* [Atarax TAB 50 MG *] 50 mg PO BEDTIME PRN #30 tab 06/29/19 [Rx Confirmed 08/11/19] Codeine Phosphate/Guaifenesin [Codeine-Guaifen 10-100 mg/5 ml] 5 - 10 ml PO Q6H PRN #150 ml MDD 40ML 08/11/19 [Rx] PMH/Surg Hx/FS Hx/Imm Hx Previously Healthy: Yes - Surgical History Surgical History: Yes Surgery Procedure, Year, and Place: SKIN GRAFTS;. BULLET REMOVED FROM LEFT LEG .22 KELLI (ER NOTES - SINGLE FRAGMENT ON XRAY - REMOVAL IN ER AT [facility]); - Family History Known Family History: Positive: Diabetes - Social History Alcohol Use: Rare Alcohol Amount: 4-5/week Substance Use Type: None Substance Use Comment - Amount & Last Used: 10 measuring cups of coffee / day Smoking Status (MU): Never Smoked Tobacco - Immunization History Most Recent Influenza Vaccination: unknown Most Recent Pneumonia Vaccination: NEVER Review of Systems All Other Systems Reviewed And Are Negative: Yes Constitutional: Positive: Fever, Chills, Fatigue ENT: Positive: Sore Throat, Nasal Discharge Respiratory: Positive: Cough Cardiovascular: Positive: Negative Gastrointestinal: Positive: Negative Musculoskeletal: Positive: Myalgia Neurological/Mental Status: Positive: Headache Physical Exam Triage Information Reviewed: Yes Appearance: No Pain Distress, Well-Nourished, Ill-Appearing - FATIGUED Vital Signs: Initial Vital Signs Temp 98.7 F 08/11/19 18:46 Pulse 79 08/11/19 18:46 Resp 18 08/11/19 18:46 BP 125/71 08/11/19 18:46 Pulse Ox 97 08/11/19 18:46 Laboratory Tests 08/11/19 19:12 Influenza B (Rapid) Positive H Vital Signs Reviewed: Yes Eyes: Positive: Conjunctiva Clear ENT: Positive: Hearing grossly normal, Pharynx normal, TMs normal Neck: Positive: Supple, Nontender, No Lymphadenopathy Respiratory Exam: Normal Cardiovascular Exam: Normal Abdomen Description: Positive: Soft Musculoskeletal: Positive: No Edema Neurological: Positive: Alert Psychological: Positive: Age Appropriate Behavior Skin: Negative: Rashes Flu Course/Dx - Course Course Of Treatment: SWAB POSITIVE FOR INFLUENZA B. PATIENT IS OUTSIDE THE WINDOW FOR TAMIFLU. ADVISED REST, HYDRATION, OTC MEDS NEEDED. FOLLOW-UP IF NOT IMPROVING EXPECTED. - Differential Dx/Diagnosis Provider Diagnosis: Influenza B Discharge ED - Sign-Out/Discharge Documenting (check all that apply): Patient Departure All imaging exams completed and their final reports reviewed: No Studies - Discharge Plan Condition: Stable Disposition: HOME Prescriptions: Codeine Phosphate/Guaifenesin [Codeine-Guaifen 10-100 mg/5 ml] 5 - 10 ml PO Q6H PRN #150 ml MDD 40ML PRN Reason: Cough Patient Education Materials: Influenza (ED) Referrals: Jorgito Herbert, PPAP COORDINATOR [Primary Care Provider] - If Needed Additional Instructions: SWAB POSITIVE FOR INFLUENZA B. YOU ARE OUTSIDE THE WINDOW FOR TAMIFLU. OTC MEDS NEEDED FOR FEVER, BODY ACHES. STAY WELL HYDRATED AND RESTED. SEEK FOLLOW-UP IF YOU ARE NOT IMPROVING EXPECTED. COUGH MEDICINE WITH CODEINE CAN BE SEDATING. DO NOT TAKE NYQUIL OR ATARAX WHILE USING THIS COUGH MEDICATION. SEEK FOLLOW-UP IF YOU ARE NOT IMPROVING OVER THE NEXT 1-2 WEEKS. USE OTC AFRIN FOR NASAL CONGESTION IF NEEDED. 2 SPRAYS IN EACH NOSTRIL TWICE DAILY NEEDED. DO NOT USE FOR MORE THAN 3-4 DAYS IN A ROW TO PREVENT DEVELOPING REBOUND CONGESTION. IF YOU ONLY USE IT ONCE DAILY YOU CAN EXTEND TO ABOUT 5 DAYS. - Billing Disposition and Condition Condition: STABLE Disposition: Home
== END 2019-08-11 19:45 | disposition home or self-care (01) ==
LOC: UCEAST 16:36
DX: J10.1 Influenza due to other identified influenza virus with other respiratory manifestations (principal)
CPT/HCPCS: 99212; G0463